=== PATIENT | female | born 1970 | race Asian ===

== ENCOUNTER 2021-12-14 04:17 | Day surgery (SDC) | payer OTHER ==
[2021-12-13 13:02] VITALS: BMI 25.4
[2021-12-14] MEDS ORDERED: PROPOFOL 20 ML ONE (07:39)
[2021-12-14] MEDS ORDERED: MIDAZOLAM HCL 2 MG/2 ML SINGLE DOSE VIAL ONE ×2 (07:40)
[2021-12-14] MEDS ORDERED: LIDOCAINE HCL 1%, 10 MG/ML (20ML VIAL) ONE (07:43)
[2021-12-14] MEDS ORDERED: BUPIVACAINE HCL/PF 0.5% (5MG/ML) 10 ML VIAL ONE (07:43)
[2021-12-14] MEDS ORDERED: LIDOCAINE HCL 1%, 10 MG/ML (20ML VIAL) NR ONE (08:28)
[2021-12-14] MEDS ORDERED: BUPIVACAINE HCL/PF 0.5% (5MG/ML) 10 ML VIAL IJ ONE (08:28)
[2021-12-14] MEDS ORDERED: KETOROLAC TROMETHAMINE 30 MG/1 ML VIAL ONE (08:49)
[2021-12-14] MEDS ORDERED: DEXAMETHASONE SOD PHOSPHATE 4 MG/1 ML VIAL ONE (08:49)
[2021-12-14] MEDS ORDERED: ONDANSETRON 4 MG/2 ML VIAL ONE (08:49)
[2021-12-14 09:16] VITALS: TEMP 97.4
[2021-12-14] MEDS ORDERED: oxyCODONE HCL 5 MG TABLET PO PRN (10:05)
[2021-12-14] MEDS ORDERED: ONDANSETRON 4 MG/2 ML VIAL IVPUSH PRN (10:05)
[2021-12-14] MEDS ORDERED: LACTATED RINGERS SOLUTION 1,000 ML IV SCH (10:15)
[2021-12-14] MEDS ORDERED: IBUPROFEN 600 MG TABLET (FP) PO ONE ×2 (10:36→10:40)
[2021-12-14 15:31] VITALS: BP 150/64; PULSE 64
== END 2021-12-14 13:10 | disposition home or self-care (01) ==
LOC: JASU-SURG 04:17
PROVIDERS: ATTEND Podiatrist Foot & Ankle Surgery
PROC: 0HBMXZX Excision of Right Foot Skin, External Approach, Diagnostic (ICD-10-PCS; principal; 2021-12-14 08:00)
DX: B07.0 Plantar wart (principal)
CPT/HCPCS: 88305-TC; 97116-GP